=== PATIENT | male | born 1945 | race Caucasian/White ===

== ENCOUNTER 2017-01-24 06:31 | Day surgery (SDC) | payer MEDICARE, BC ==
[~2017-01-24 06:31] MED LIST: Lactated Ringers 1,000 ML IV SCH
[2017-01-24] MEDS ORDERED: Propofol 200 MG/20 ML SDV ONE (08:06)
[2017-01-24] MEDS ORDERED: fentaNYL 100 MCG/2 ML SDV ONE (08:06)
[2017-01-24 09:16] VITALS: BP 115/60
--- NOTE | 2017-01-24 14:52 | OR ---
DATE OF SURGERY: 01/24/2017. REFERRING PROVIDER: Sajan Jaime MD. PRE-OPERATIVE DIAGNOSES: Positive family history of colon cancer in brother and father. The patient's last colonoscopies on January 2012 and January 2007 were normal. POST-OPERATIVE DIAGNOSES: 1. Minimal sigmoid diverticulosis. Otherwise, normal colon. 2. Mild internal hemorrhoids. PROCEDURE: Colonoscopy. SURGEON: Fransisco Jain M.D. ANESTHESIA: Monitored anesthesia care. BOWEL PREP: Good. DESCRIPTION OF OPERATION: Joe is a 71-year-old male. The patient was brought to the endoscopy suite after discussing risks and benefits of the procedure. Informed consent was obtained for conscious sedation and colonoscopy with or without biopsy and/or polypectomy. We also discussed possibility of missed lesions. Pre-procedure exam was unremarkable. IV, oxygen, and monitors were placed. The patient was placed in the left lateral decubitus position. Sedation was administered and a digital rectal exam was performed and was unremarkable except for mild to moderately enlarged prostate. No palpable nodules. Colonoscope was passed into the rectum and slowly advanced all the way to the cecum. Cecum was viewed and photographed. The colonoscope was slowly withdrawn and the mucosa was closed observed in a direct circumferential manner. The ascending colon was unremarkable. Transverse colon was unremarkable. Descending colon was unremarkable. Sigmoid colon did reveal some minimal diverticulosis. Retroflexion was performed. Rectal mucosa was remarkable for some mild internal hemorrhoids. Scope was removed. The patient tolerated the procedure well. The patient was monitored until that baseline status. Discharge instructions were reviewed and the patient was discharged in good condition. COMPLICATIONS: None. TOTAL TIME: 17 minutes. ESTIMATED BLOOD LOSS: None. RECOMMENDATIONS/FOLLOWUP: Recommend repeating colonoscopy again in 5 years given the positive family history. The patient can resume his warfarin tonight. I would like to kindly thank Sajan Jaime MD for this referral. DMB: 01/24/2017 09:33:50 MODL: 01/24/2017 11:45:40 /[id number]
== END 2017-01-24 10:00 | disposition home or self-care (01) ==
LOC: VM.SDS 06:31
PROVIDERS: ATTEND Family Medicine
DX: Z12.11 Encounter for screening for malignant neoplasm of colon (principal); K57.30 Diverticulosis of large intestine without perforation or abscess without bleeding; K64.8 Other hemorrhoids; I10 Essential (primary) hypertension; E78.00 Pure hypercholesterolemia, unspecified; Z79.01 Long term (current) use of anticoagulants; Z98.890 Other specified postprocedural states; Z79.899 Other long term (current) drug therapy
CPT/HCPCS: 36415; 45378; 85610; J2704; J3010; J7120; 00810

== ENCOUNTER 2018-12-13 07:17 | Emergency (ER) | payer MEDICARE, BC ==
[2018-12-13 07:56] VITALS: BP 119/69
[2018-12-13] MEDS ORDERED: cefTRIAXone 2 GM, Lidocaine 1% 4.2 ML IM ONE ×4 (08:03→08:06)
--- NOTE | 2018-12-16 12:30 | EDM.PDOC ---
ED HPI GENERAL MEDICAL PROBLEM - General Chief Complaint: General Time Seen by Provider: 12/13/18 07:30 Source of Information: Reports: Patient History Limitations: Reports: No Limitations - History of Present Illness INITIAL COMMENTS - FREE TEXT/NARRATIVE: Pt. presents to ER with complaints of dysuria, urinary frequency, urgency, that he has been experiencing for 4 days. He also has some low back pain. Denies any lightheadedness. No chest pain or shortness of breath. No abdominal pain, diarrhea, or vomiting. Denies any history of UTI in the past. Onset Date: 12/13/18 Location: Reports: Back, Pelvis Bladder Pain Score (Numeric/FACES): 6 - Related Data Allergies Allergy/AdvReac Type Severity Reaction Status Date / Time No Known Allergies Allergy Verified 12/13/18 07:49 Home Meds: Home Meds Acetaminophen/Diphenhydramine [Tylenol Pm Ex-Strength Caplet] 1 each PO BEDTIME 01/17/17 [History] Metoprolol Succinate [Toprol XL] 50 mg PO DAILY 01/17/17 [History] Simvastatin [Zocor] 40 mg PO BEDTIME 01/17/17 [History] Warfarin [Coumadin] 5 mg PO ASDIRECTED 01/17/17 [History] Past Medical History HEENT History: Reports: Allergic Rhinitis Cardiovascular History: Reports: Afib, High Cholesterol, Hypertension Other Cardiovascular History: ABNORMAL EKG. PAROXYSMAL A-FIB. HX RHEUMATIC FEVER AGE 8, NO SEQUELAE Respiratory History: Reports: None Gastrointestinal History: Reports: GERD Other Gastrointestinal History: FAMILY HX COLON CANCER Genitourinary History: Reports: Renal Calculus Other Genitourinary History: MILD ERECTILE DYSFUNCTION Musculoskeletal History: Reports: Osteoarthritis Other Musculoskeletal History: DJD (DEGENERATIVE JOINT DISEASE IN BACK, HIPS, KNEES, SHOULDER) Neurological History: Reports: None Psychiatric History: Reports: None Other Psychiatric History: CHEWS TOBACCO Endocrine/Metabolic History: Reports: None Hematologic History: Reports: None Immunologic History: Reports: None Oncologic (Cancer) History: Reports: None Dermatologic History: Reports: None - Past Surgical History HEENT Surgical History: Reports: None, Tonsillectomy Other HEENT Surgeries/Procedures: S/P BLEPHAROPLASTY Cardiovascular Surgical History: Reports: None Respiratory Surgical History: Reports: None Endocrine Surgical History: Reports: None Other Musculoskeletal Surgeries/Procedures:: LUMBAR LAMINECTOMY Social & Family History - Tobacco Use Smoking Status *Q: Unknown Ever Smoked - Recreational Drug Use Recreational Drug Use: No ED ROS GENERAL - Review of Systems Review Of Systems: See Below Constitutional: Reports: No Symptoms HEENT: Reports: No Symptoms Respiratory: Reports: No Symptoms Cardiovascular: Reports: No Symptoms Endocrine: Reports: No Symptoms GI/Abdominal: Reports: No Symptoms : Reports: Dysuria, Frequency, Urgency. Denies: Hematuria, Urinary Retention Musculoskeletal: Reports: No Symptoms Skin: Reports: No Symptoms Neurological: Reports: No Symptoms Psychiatric: Reports: No Symptoms Hematologic/Lymphatic: Reports: No Symptoms Immunologic: Reports: No Symptoms ED EXAM, GENERAL - Physical Exam Exam: See Below Exam Limited By: No Limitations General Appearance: Alert, WD/WN, No Apparent Distress Respiratory/Chest: No Respiratory Distress, Lungs Clear, Normal Breath Sounds, No Accessory Muscle Use, Chest Non-Tender Cardiovascular: Normal Peripheral Pulses, Regular Rate, Rhythm, No Edema, No Gallop, No JVD, No Murmur, No Rub Peripheral Pulses: 4+: Radial (R) GI/Abdominal: Soft, Non-Tender, No Organomegaly, No Distention, No Mass (Male) Exam: Deferred Rectal (Males) Exam: Deferred Back Exam: Normal Inspection, Full Range of Motion. No: CVA Tenderness (L), CVA Tenderness (R) Extremities: Normal Inspection, Normal Range of Motion, Non-Tender, Normal Capillary Refill, No Pedal Edema Neurological: Alert, Oriented, CN II-XII Intact, Normal Cognition, Normal Gait, Normal Reflexes, No Motor/Sensory Deficits Course - Vital Signs Last Recorded V/S: Last Vital Signs Temp 37.5 C 12/13/18 07:18 Pulse 90 12/13/18 07:18 Resp 18 12/13/18 07:18 BP 119/69 12/13/18 07:18 Pulse Ox 94 L 12/13/18 07:18 - Orders/Labs/Meds Labs: Laboratory Tests 12/13/18 Range/Units 07:30 Urine Color Lakshmi H (YELLOW) Urine Appearance Turbid H (CLEAR) Urine pH 6.0 (5.0-8.0) Ur Specific [place] 1.020 Urine Protein >=300 H (NEGATIVE) mg/dL Urine Glucose (UA) Negative (NEGATIVE) mg/dL Urine Ketones Trace H (NEGATIVE) mg/dL Urine Occult Blood Large H (NEGATIVE) Urine Nitrite Positive H (NEGATIVE) Urine Bilirubin Small H (NEGATIVE) Urine Urobilinogen 2.0 H (0.2) EU/dL Ur Leukocyte Esterase Moderate H (NEGATIVE) Urine RBC 10-20 H (NOT SEEN) /HPF Urine WBC >100 H (NOT SEEN) /HPF Urine WBC Clumps Few Ur Squamous Epith Cells Few H (NEGATIVE) /HPF Ur Renal Epithelial Cell Few H (NEGATIVE) /HPF Amorphous Sediment Few Urine Bacteria Many H (NEGATIVE) /HPF Urine Mucus Few H (NEGATIVE) /LPF Meds: Medications Discontinued Medications Generic Name Dose Route Start Last Admin Trade Name Freq PRN Reason Stop Dose Admin Ceftriaxone Sodium 2 gm/ 0 gm 12/13/18 08:03 Lidocaine HCl 4.2 ml IM 12/13/18 08:04 ONETIME ONE Ceftriaxone Sodium 2 gm/ 0 gm 12/13/18 08:06 12/13/18 08:18 Lidocaine HCl 4.2 ml IM 12/13/18 08:07 1 inj ONETIME ONE Administration Departure - Departure Time of Disposition: 08:00 Disposition: Home, Self-Care 01 Clinical Impression: UTI (urinary tract infection) - Discharge Information Instructions: Urinary Tract Infection, Adult, Sulfamethoxazole; Trimethoprim, SMX-TMP tablets, Probiotics Referrals: Sajan Jaime MD [Primary Care Provider] - Forms: ED Department Discharge Additional Instructions: Home to rest. Drink lots of water. Bactrim DS twice daily until gone. Make sure you finish the entire course, even if you feel better. Contact your coumadin clinic on Saturday and tell them you were given Rocephin and Bactrim for a UTI. This can increase your INR and they will want to check it sooner. - Assessment/Plan Plan: Home to rest. Drink lots of water. Bactrim DS twice daily until gone. Make sure you finish the entire course, even if you feel better. Contact your coumadin clinic on Saturday and tell them you were given Rocephin and Bactrim for a UTI. This can increase your INR and they will want to check it sooner.
== END 2018-12-13 08:28 | disposition home or self-care (01) ==
LOC: VM.ED 07:17
DX: N39.0 Urinary tract infection, site not specified (principal); I10 Essential (primary) hypertension; I48.91 Unspecified atrial fibrillation; M19.90 Unspecified osteoarthritis, unspecified site; Z79.01 Long term (current) use of anticoagulants; Z98.890 Other specified postprocedural states
CPT/HCPCS: 81001; 96372; 99283; J0696; J2001; 99284-GF

== ENCOUNTER 2022-08-24 06:54 | Day surgery (SDC) | payer BC, MEDICARE ==
[2022-08-24] MEDS: Lactated Ringers 1,000 ML IV SCH (07:08)
[2022-08-24] MEDS ORDERED: Propofol 200 MG/20 ML SDV ONE ×2 (08:24→08:50)
[2022-08-24] MEDS ORDERED: fentaNYL 100 MCG/2 ML SDV ONE (08:24)
[2022-08-24 09:26] VITALS: BP 109/60; PULSE 57
== END 2022-08-24 10:25 | disposition home or self-care (01) ==
LOC: VM.SDS 06:54
PROVIDERS: ATTEND Student in an Organized Health Care Education/Training Program
DX: Z12.11 Encounter for screening for malignant neoplasm of colon (principal); K52.9 Noninfective gastroenteritis and colitis, unspecified; G47.00 Insomnia, unspecified; E78.00 Pure hypercholesterolemia, unspecified; E78.5 Hyperlipidemia, unspecified; I48.91 Unspecified atrial fibrillation; Z80.0 Family history of malignant neoplasm of digestive organs; Z98.890 Other specified postprocedural states; Z96.651 Presence of right artificial knee joint
CPT/HCPCS: 00812; 88305; J2704; J3010; J7120

== ENCOUNTER 2023-04-04 13:24 | Day surgery (SDC) | payer MEDICARE ==
[2023-04-04 14:42] LABS: INR 1.1 (0.9-1.1); PROTHROMBIN TIME 11.3 SEC (9.5-12.2)
[2023-04-04] MEDS ORDERED: Propofol 200 MG/20 ML SDV ONE ×2 (15:02→15:18)
[2023-04-04] MEDS ORDERED: fentaNYL 100 MCG/2 ML SDV ONE (15:02)
[2023-04-04 17:03] VITALS: BP 136/76; PULSE 53
== END 2023-04-04 17:30 | disposition home or self-care (01) ==
LOC: VM.SDS 13:24
PROVIDERS: ATTEND Family Medicine
DX: K22.2 Esophageal obstruction (principal); K29.50 Unspecified chronic gastritis without bleeding; K44.9 Diaphragmatic hernia without obstruction or gangrene; K29.80 Duodenitis without bleeding; I48.0 Paroxysmal atrial fibrillation; E78.00 Pure hypercholesterolemia, unspecified; Z79.899 Other long term (current) drug therapy; Z79.01 Long term (current) use of anticoagulants; Z87.891 Personal history of nicotine dependence
CPT/HCPCS: 00731; 36415; 43239; 43249; 85610; 88305; 88342; J2704; J3010; J7120

== ENCOUNTER 2024-12-18 20:26 | Emergency (ER) | payer MEDICARE ==
[2024-12-18] MEDS ORDERED: Sodium Chloride 0.9% 10 ML Syringe FLUSH PRN (20:31)
[2024-12-18 20:49] LABS: BASOPHILS PERCENT AUTO 0.7 % (0.2-1.2); EOSINOPHILS ABSOLUTE AUTO 0.2 x10^3/uL (0.0-0.5); EOSINOPHILS PERCENT AUTO 2.8 % (0.0-4.0); HEMATOCRIT 39.6 % (40.0-52.0); HEMOGLOBIN 14.1 g/dL (14.0-18.0); IMMATURE GRAN ABSOLUTE AUTO 0.01 x10^3/uL (0.00-0.07); LYMPHOCYTES ABSOLUTE AUTO 1.7 x10^3/uL (1.0-4.8); LYMPHOCYTES PERCENT AUTO 31.6 % (25.0-50.0); MEAN CORPUSCULAR HEMOGLOBIN 33.1 pg (26.0-32.0); MEAN CORPUSCULAR HGB CONC 35.6 g/dL (32.0-36.0); MONOCYTES ABSOLUTE AUTO 0.5 x10^3/uL (0.0-0.8); MONOCYTES PERCENT AUTO 9.7 % (2.0-11.0); NEUTROPHILS ABSOLUTE AUTO 2.9 x10^3/uL (1.8-7.7); PLATELET COUNT,PLT 199 x10^3/uL (130-400); RED BLOOD CELL COUNT 4.26 x10^6/uL (4.5-6.0); WHITE BLOOD CELL COUNT,WBC 5.4 x10^3/uL (4.0-10.0)
[2024-12-18 21:13] LABS: A/G RATIO 1.16; ALANINE AMINOTRANSFERASE,ALT 17 U/L (16-63); ALBUMIN 3.7 g/dL (3.4-5.0); ALKALINE PHOSPHATASE 135 U/L (46-116); ASPARTATE AMNIOTRANSFERASE,AST 24 U/L (15-37); BILIRUBIN TOTAL 0.4 mg/dL (0.2-1.0); BLOOD UREA NITROGEN,BUN 20 mg/dL (7-18); CALCIUM 8.4 mg/dL (8.5-10.1); CARBON DIOXIDE,CO2 27 mmol/L (21-32); CHLORIDE,CL 106 mmol/L (98-107); CREATININE 1.1 mg/dL (0.70-1.30); GLUCOSE RANDOM 129 mg/dL (70-99); POTASSIUM,K 4.2 mmol/L (3.5-5.1); PROTEIN TOTAL,TP 6.9 g/dL (6.4-8.2); SODIUM,NA 141 mmol/L (136-145)
[2024-12-18 21:15] LABS: ANION GAP 12.2 mmol/L (5-15); ESTIMATED GFR 68 mL/min (>=60)
[2024-12-18 21:27] VITALS: PULSE 75
[2024-12-18 21:50] VITALS: BP 157/79
== END 2024-12-18 21:40 | disposition home or self-care (01) ==
LOC: VM.ED 20:26
DX: I49.3 Ventricular premature depolarization (principal); E78.00 Pure hypercholesterolemia, unspecified; I48.91 Unspecified atrial fibrillation; K21.9 Gastro-esophageal reflux disease without esophagitis; Z79.01 Long term (current) use of anticoagulants; Z79.899 Other long term (current) drug therapy
CPT/HCPCS: 36415; 71045; 80053; 84484; 85025; 93005; 93010; 99284; 99285